=== PATIENT | male | born 1990 | race Two or more races ===

== ENCOUNTER 2017-02-11 14:44 | Emergency (ER) | payer MEDICAID ==
[~2017-02-11] VITALS: Ht 177.8 cm; Wt 81.6 kg
[2017-02-11 15:04] VITALS: BP 109/62
[2017-02-11] MEDS ORDERED: IBUPROFEN600 MG ORAL (16:02)
--- NOTE | 2017-02-11 16:07 | Diagnostic Imaging Report ---
Indication: PAIN Technique: 3 views of the left ankle Comparison: none Findings: No acute fractures. No dislocations. Joint spaces are preserved. Normal mineralization. No radiopaque foreign body. Impression: Negative
[2017-02-11 16:21] VITALS: BP 109/62
--- NOTE | 2017-02-11 22:29 | Emergency Room Report ---
History of Present Illness General Chief Complaint: Pain Source: Patient Present Illness HPI The patient is a 26-year-old male presenting for left ankle pain. He noticed it this morning upon waking up. He states that it is worse with walking. Pain is an 8/10 dull ache and does not radiate. He is unsure of possible injury to the area. He has not tried any medications for pain. He denies any other symptoms including nausea, vomiting, fever, chills, rash Allergies: Coded Allergies: PENICILLINS (Verified Allergy, Unknown, 02/11/17) Patient History Past Medical History: see triage record Pertinent Family History: none Reviewed Nursing Documentation: PMH: Agreed, PSxH: Agreed Nursing Documentation-PMH Past Medical History: No Stated History Review of Systems All Other Systems: negative except mentioned in HPI Physical Exam Vital Signs Date Time Temp Pulse Resp B/P (MAP) Pulse Ox O2 Delivery O2 Flow Rate FiO2 02/11/17 14:47 98.1 70 20 109/62 99 Room Air Sp02 EP Interpretation: reviewed, normal General Appearance: no apparent distress, alert, GCS 15, non-toxic Head: normocephalic, atraumatic Eyes: bilateral eye normal inspection, bilateral eye PERRL Musculoskeletal: normal range of motion, swelling - L medial and lateral ankle , tender - TTP over the L medial and lateral mal Neurologic: alert, oriented x3, responsive, motor strength/tone normal, sensory intact, speech normal Psychiatric: judgement/insight normal, memory normal, mood/affect normal, no suicidal/homicidal ideation Skin: normal color, no rash, warm/dry, well hydrated Lymphatic: no adenopathy Procedures Splinting Splinting : Consent: Verbal Location: [facility] Pre-Made Type: NACHO wrap Pre-Proc Neuro Vasc Exam: normal Post-Proc Neuro Vasc Exam: normal Patient Tolerated: Well Complications: None Medical Decision Making PA Attestation Dr. Ward is my supervising physician. Patient management was discussed with my supervising physician Diagnostic Impression: Primary Impression: Left ankle sprain Qualified Codes: S93.402A - Sprain of unspecified ligament of left ankle, initial encounter ER Course The patient is a 26-year-old male presenting for left ankle pain. Ddx considered include but not limited to sprain/strain, fracture, contusion Physical exam: Vitals within normal limits. No apparent distress Left ankle: There is tenderness to palpation and edema over the left and right malleolus. Full active range of motion. Sensation intact to light touch. X-ray of the left ankle is unremarkable Left ankle placed in NACHO wrap and the patient is provided crutches. ER precautions are given. Patient given prescription for Motrin and will follow up with primary care physician. Other X-Ray Diagnostic Results Other X-Ray Diagnostic Results : X-Ray ordered: L ankle # of Views/Limited Vs Complete: 3 View Indication: Pain EP Interpretation: Yes Interpretation: no dislocation, no soft tissue swelling, no fractures Impression: No acute disease Electronically Signed by: OMARI Adorno Scribe Text I have reviewed the xray with my supervising physician and interpretation is that there are no fractures, dislocations or soft tissue swelling. Last Vital Signs Date Time Temp Pulse Resp B/P (MAP) Pulse Ox O2 Delivery O2 Flow Rate FiO2 02/11/17 16:21 98.1 73 20 109/62 99 Room Air Status: improved Disposition: HOME, SELF-CARE Condition: Improved Scripts Ibuprofen* (MOTRIN*) 600 Mg Tablet 600 MG ORAL Q8H Y for For Pain, #30 TAB 0 Refills Prov: APRIL HAYWOOD 02/11/17 Patient Instructions: Ankle Sprain Additional Instructions: I discussed my findings with the patient. All questions and concerns have been answered. Treatment and medication compliance have been addressed. I advised the patient that they need to follow up with PMD in 3-5 days. Return to ED if pain remains or worsens, numbness or tingling occurs, new rash is noticed, fever is noticed, or if needed for any reason. Patient verbalized understanding of discharge instructions. APRIL HAYWOOD Feb 11, 2017 22:29
== END 2017-02-11 16:23 | disposition home or self-care (01) ==
LOC: EMR 15:00
DX: S93.402A Sprain of unspecified ligament of left ankle, initial encounter (principal); X58.XXXA Exposure to other specified factors, initial encounter; Y93.9 Activity, unspecified; Y99.9 Unspecified external cause status; Z88.0 Allergy status to penicillin
CPT/HCPCS: 29540; 99283

== ENCOUNTER 2017-12-28 21:49 | Emergency (ER) | payer MEDICAID ==
[~2017-12-28] VITALS: Ht 165.1 cm; Wt 59.0 kg
[~2017-12-28 21:49] MED LIST: IBUPROFEN600 MG ORAL
--- NOTE | 2017-12-28 22:23 | Emergency Room Report ---
History of Present Illness General Chief Complaint: General Complaint Source: Patient Present Illness HPI Patient present with complaints of pain in the rectal area he feels that there is a hemorrhoid He noticed the area 3 days ago Pain is worse with standing and sitting denies any constipation Denies any fevers or chills Denies any chest pain or shortness of breath pain is 3 out of 10 sharp Allergies: Coded Allergies: PENICILLINS (Verified Allergy, Unknown, 02/11/17) Patient History Past Medical History: see triage record Pertinent Family History: none Reviewed Nursing Documentation: PMH: Agreed; PSxH: Agreed Nursing Documentation-PMH Past Medical History: No Stated History Review of Systems All Other Systems: negative except mentioned in HPI Physical Exam Vital Signs Date Time Temp Pulse Resp B/P (MAP) Pulse Ox O2 Delivery O2 Flow Rate FiO2 12/28/17 22:08 98.0 66 18 110/70 98 Room Air 98.1 Sp02 EP Interpretation: reviewed, normal General Appearance: well appearing, no apparent distress Head: normocephalic, atraumatic Eyes: bilateral eye PERRL, bilateral eye EOMI ENT: normal pharynx, no angioedema Neck: full range of motion, supple Respiratory: lungs clear Cardiovascular #1: regular rate, rhythm Gastrointestinal: non tender, soft Rectal: other - Small pea-sized, thrombosed hemorrhoid at approximately 7:00, no other associated fissures, no other rectal bleed Genitourinary: no CVA tenderness Musculoskeletal: normal inspection Neurologic: alert, oriented x3 Skin: normal color, no rash Medical Decision Making Diagnostic Impression: Primary Impression: Thrombosed hemorrhoids ER Course Patient's exam is consistent with a small thrombosed hemorrhoid this will require specialty outpatient follow-up Patient is provided with symptomatic medications and at this time stable for close follow-up Last Vital Signs Date Time Temp Pulse Resp B/P (MAP) Pulse Ox O2 Delivery O2 Flow Rate FiO2 12/28/17 22:08 98.0 66 18 110/70 98 Room Air 98.1 Status: unchanged Disposition: HOME, SELF-CARE Condition: Stable Additional Instructions: Patient is provided with the discharge instructions notified to follow up with primary doctor in the next 2-3 days otherwise return to the er with any worsening symptoms. Please note that this report is being documented using [employer] technology. This can lead to erroneous entry secondary to incorrect interpretation by the dictating instrument. Laila Luu DO Dec 28, 2017 22:23
[2017-12-28] MEDS ORDERED: ANUSOL-HC30 GM RC (22:27)
[2017-12-28 22:55] VITALS: BP 110/70
== END 2017-12-28 22:58 | disposition home or self-care (01) ==
LOC: EMR 22:20
DX: K64.5 Perianal venous thrombosis (principal); Z88.0 Allergy status to penicillin
CPT/HCPCS: 99282

== ENCOUNTER 2019-07-09 19:08 | Emergency (ER) | payer MEDICAID ==
[~2019-07-09] VITALS: Ht 175.3 cm; Wt 81.6 kg
[~2019-07-09 19:08] MED LIST changes: +ANUSOL-HC30 GM RC
[2019-07-09 19:25] VITALS: BP 121/69
[2019-07-09] MEDS ORDERED: MULTIVITAMINS1 EAC8 ORAL (19:26)
--- NOTE | 2019-07-09 19:27 | NUR ---
ED Nurse Note: PT WALKED IN TO ED C/O LUMP ON RT NECK THAT HE NOTICED WHILE SHOWERING. PT STATES TENDERNESS WHEN TOUCHING BUT OTHERWISE STABLE. VSS
--- NOTE | 2019-07-09 19:45 | NUR ---
ED Nurse Note: BLOOD COLLECTED AND SENT TO LAB
[2019-07-09] MEDS ORDERED: Omnipaque 350 100ml vial INJ PRN (20:00)
[2019-07-09 20:30] LABS: ANION GAP 11 mmol/L (5-15); BLOOD UREA NITROGEN 15 mg/dL (7-18); CALCIUM 9.3 MG/DL (8.5-10.1); CARBON DIOXIDE 28 MMOL/L (21-32); CHLORIDE 108 MMOL/L (98-107); POTASSIUM 3.6 MMOL/L (3.5-5.1); SODIUM 147 MMOL/L (136-145)
[2019-07-09 20:35] LABS: ALANINE AMINOTRANSFERASE 55 U/L (12-78); ALBUMIN 3.9 G/DL (3.4-5.0); ALKALINE PHOSPHATASE 83 U/L (46-116); ASPARTATE AMINO TRANSFERASE 25 U/L (15-37); BILIRUBIN,TOTAL 0.2 MG/DL (0.2-1.0)
[2019-07-09 20:42] LABS: BASOPHILS % (AUTO) 1.1 % (0.0-2.0); EOSINOPHILS % (AUTO) 1.2 % (0.0-3.0); HEMATOCRIT 48.6 % (42.0-52.0); HEMOGLOBIN 15.8 G/DL (14.2-18.0); LYMPHOCYTES % (AUTO) 23.8 % (20.0-45.0); MEAN CORPUSCULAR VOLUME 90 FL (80-99); PLATELET COUNT 277 K/UL (150-450); RED BLOOD COUNT 5.39 M/UL (4.70-6.10); WHITE BLOOD COUNT 8.6 K/UL (4.8-10.8)
--- NOTE | 2019-07-09 20:48 | NUR ---
ED Nurse Note: PAGED RAD FOR CT NECK W CONTRAST. PT CONSENT TAKEN.
--- NOTE | 2019-07-09 20:49 | NUR ---
ED Nurse Note: PT WENT FOR CT VIA WALKING
--- NOTE | 2019-07-09 20:58 | NUR ---
ED Nurse Note: PT BACK FROM CT
--- NOTE | 2019-07-09 21:28 | Diagnostic Imaging Report ---
Indication: Neck pain. Technique: Continuous helical imaging of the neck was obtained transaxially from the skull base to the upper thoracic spine during intravenous administration of nonionic contrast. 2-D coronal and sagittal reformatted images were obtained. Total Dose length Product (DLP): 301.[address] Dose Index Volume (CTDIvol): 105.4 mGy Comparison: None Findings: Skull base structures are unremarkable. Mastoids are clear bilaterally. The visualized nasopharynx, oropharynx, and hypopharynx appears unremarkable. There is no mass or asymmetry identified. Supraglottic structures including the epiglottis and aryepiglottic folds appear normal. The larynx is unremarkable. The subglottic airway is clear. There is no lymphadenopathy. The parotid, thyroid, submandibular and sublingual glands appear unremarkable. Impression: Negative contrast-enhanced CT of the neck. The CT scanner at [facility] is accredited by the [employer] and the scans are performed using dose optimization techniques as appropriate to a performed exam including Automatic Exposure control.
[2019-07-09] MEDS ORDERED: IBUPROFEN600 MG ORAL (21:36)
--- NOTE | 2019-07-09 21:36 | Emergency Room Report ---
History of Present Illness General Chief Complaint: Skin Rash/Abscess Source: Patient Present Illness HPI 29-year-old male with no segment past medical history here complaining of 1 day of painless mass noted on right side of neck. Denies any sore throat, cough and congestion, fever intake, recent travel. Reports that has not noticed this mass before. Denies any history of thyroid issues. Denies weight loss, fatigue , palpitation, chest pain, no other associated symptoms. Semimobile mass noted with round presentation on right anterior cervical. Allergies: Coded Allergies: PENICILLINS (Verified Allergy, Unknown, 02/11/17) Patient History Past Medical History: see triage record Past Surgical History: none Pertinent Family History: none Immunizations: UTD Reviewed Nursing Documentation: PMH: Agreed; PSxH: Agreed Nursing Documentation-PMH Past Medical History: No Stated History Review of Systems All Other Systems: negative except mentioned in HPI Physical Exam Vital Signs Date Time Temp Pulse Resp B/P (MAP) Pulse Ox O2 Delivery O2 Flow Rate FiO2 07/09/19 19:21 98.1 89 16 121/69 (86) 98 Room Air Sp02 EP Interpretation: reviewed, normal General Appearance: no apparent distress, alert, GCS 15, non-toxic Eyes: bilateral eye normal inspection, bilateral eye PERRL ENT: normal pharynx Neck: supple, no meningismus, no bony tend, other - Mobile mass noted right anterior cervical Respiratory: chest non-tender, lungs clear, normal breath sounds, no rhonchi, no wheezing, speaking full sentences Cardiovascular #1: regular rate, rhythm, no edema, no murmur Cardiovascular #2: 2+ carotid (R), 2+ carotid (L) Gastrointestinal: normal bowel sounds, non tender, soft, non-distended, no guarding, no rebound Rectal: deferred Genitourinary: no CVA tenderness Musculoskeletal: back normal Neurologic: alert, motor strength/tone normal, oriented x3, sensory intact, responsive, speech normal Psychiatric: judgement/insight normal, memory normal, mood/affect normal, no suicidal/homicidal ideation Lymphatic: adenopathy - Right anterior cervical Medical Decision Making PA Attestation All my diagnosis and treatment plans were reviewed ad discussed with my supervising physician Dr. Briseno Diagnostic Impression: Primary Impression: Cervical lymphadenopathy ER Course 29-year-old male with no segment past medical history here complaining of 1 day of painless mass noted on right side of neck. Denies any sore throat, cough and congestion, fever intake, recent travel. Reports that has not noticed this mass before. Denies any history of thyroid issues. Denies weight loss, fatigue , palpitation, chest pain, no other associated symptoms. Semimobile mass noted with round presentation on right anterior cervical. Ddx considered but are not limited to : Cellulitis, lymphoma, lipoma, superficial infection, abscess Vital signs: are WNL, pt. is afebrile H&PE are most consistent with: Cervical lymphadenopathy possible lipoma ORDERS: CBC, CMP, soft tissue neck CT scan with contrast, ED INTERVENTIONS: None required at this time. DISCHARGE: At this time pt. is stable for d/c to home. Will provide printed patient care instructions, and any necessary prescriptions. Care plan and follow up instructions have been discussed with the patient prior to discharge. After writing Motrin patient reports that patient cannot take Motrin and has Tylenol at home to take. Patient to follow primary doctor for further evaluation, at this time no malignancy noted however do follow-up with primary doctor for possible biopsy and further evaluation. Patient agrees. CT/MRI/US Diagnostic Results CT/MRI/US Diagnostic Results : Imaging Test Ordered: Soft tissue neck CT with contrast Impression CTNECK W/WO Contrast: No masses identified. No cervical lymphadenopathy. Carotid and vertebral arteries within normal limits. Last Vital Signs Date Time Temp Pulse Resp B/P (MAP) Pulse Ox O2 Delivery O2 Flow Rate FiO2 07/09/19 19:25 98.1 89 16 121/69 98 Room Air Disposition: HOME, SELF-CARE Condition: Stable Scripts Ibuprofen* (MOTRIN*) 600 Mg Tablet 600 MG ORAL Q6H PRN for For Pain, #30 TAB Prov: Anuj Mason 07/09/19 Patient Instructions: Lymphadenopathy Additional Instructions: Take medication as directed, follow-up with your primary care provider, if worsening symptoms return to the emergency room Anuj Mason Jul 09, 2019 21:36
[2019-07-09 21:40] VITALS: BP 121/69
--- NOTE | 2019-07-09 21:40 | NUR ---
ER DISCHARGE NOTE: Patient is cleared to be discharged per ERMD, pt is aox4, on room air, with stable vital signs. pt was given dc and prescription instructions, pt was able to verbalize understanding, pt id band and iv site removed without complications. pt is able to ambulate with steady gait. pt took all belongings.
== END 2019-07-09 21:40 | disposition home or self-care (01) ==
LOC: EMR 19:40
DX: R59.1 Generalized enlarged lymph nodes (principal); Z88.0 Allergy status to penicillin
CPT/HCPCS: 36415; 70491; 80053; 85025; Q9967; Z7502; 99284